=== PATIENT | male | born 1965 | race Caucasian/White ===

== ENCOUNTER → 2018-02-20 12:31 | Outpatient (CLI) | payer OTHER, SELFPAY ==
--- NOTE | 2018-02-20 12:38 | RAD_ITS ---
STUDY: X-RAY - LUMBAR SPINE REASON FOR EXAM: Male, 52 years old. Left hip pain. TECHNIQUE: 5 view(s) of the lumbar spine were obtained. COMPARISON: None FINDINGS: Normal lumbar lordosis. There is no substantial scoliosis. There is a normal alignment of the vertebrae. There is multilevel endplate spondylosis of the lumbar vertebrae. There is degenerative disc disease with borderline to mild L3-4 and L4-5 disc space narrowing. There is no demonstrated fracture. There are scattered degenerative arthroses of varying degree involving the lumbar facet articulations. The paraspinal soft tissue structures are unremarkable. There is moderate volume of fecal material in the right colon, as well as gas in much of the remaining nondistended colon and small bowel. The pattern overall is nonspecific. RAD/L/S Spine Min 4 Views IMPRESSION: Degenerative changes of the spine, as detailed above. Electronically Signed: Bartolo Summers MD at 15:02 EDT , Service support ,
--- NOTE | 2018-02-20 12:38 | RAD_ITS ---
STUDY: X-RAY - PELVIS AND LEFT HIP REASON FOR EXAM: Male, 52 years old. Left hip pain. TECHNIQUE: Radiological exam, hip, unilateral, with pelvis when performed; 2 or 3 views. COMPARISON: None. FINDINGS: There is a non-specific bowel gas pattern. Normal visualized soft tissue structures. Early degenerative arthroses of the visualized lower lumbar facet articulations. Normal bilateral iliac wings, sacroiliac joints and visualized sacrum. Normal bilateral superior and inferior pubic rami. Normal pubic symphysis. Normal bilateral ischial tuberosities. Normal visualized femoral head. Normal acetabulum. There is mild articular joint space narrowing of the hip. There is no demonstrated osseous destructive lesion or fracture RAD/Hip 2-3 Views with Pelvis IMPRESSION: Mild degenerative changes of the lower lumbar facet joints and left hip joint. Electronically Signed: Bartolo Summers MD at 15:00 EDT , Service support ,
== END ==
PROVIDERS: Family Provider Family Medicine; PCP Family Medicine; Visit Provider Family Medicine
DX: M25.552 Pain in left hip (principal)
CPT/HCPCS: 72110; 73502

== ENCOUNTER 2018-03-12 09:00 | Outpatient (RCR) | payer OTHER, SELFPAY ==
--- NOTE | 2018-02-22 11:27 | HP.PTEVAL ---
Patient's Visit Information CINDY ASH is a 52 year old M referred to Physical Therapy by Riley Pepper with a diagnosis of L hip pain. Date of Evaluation: 02/22/18 Physical Therapist: Eduar Loo, PT, - Visit Plan Frequency: 2x /Week Duration: 3 Weeks Plan: Postural edu, REIL, core stab ex's, LE stretching, DTR, foam roller, and HEP - Subjective Subjective: Pt reports he has had L hip pain for greater than 15 years. Pt notes he was water skiing when he injured his L hip. Pt notes the pain has progressively worsened over the past several weeks. Pt reports his pain is located on the posterior aspect of his L greater trocanter. Pt notes the pain is constant in nature, but the severity changes at different times. Sleep diff secondary to pain. Pt denies T or N in L LE. Pt reports he has been using a TENS unit to get pain relief. 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 Pt had Xrays recently which revealed nothing significant in the L hip. 0/10 at rest, 6/10 at worst. Pt has had PT in the past on several occasions, but pain relief was only temporary. - Pain L hip Pain Intensity (Out of 10): 0 Pain Intensity Range: 6 - Objective Neuro: B LE sensation is WNL to light touch. B patellar reflex= 1/3. Posture: Pt displays decreased L/S lordosis. Palpation: Pt is very sore on the greater trocanter in L hip. Pt Notes pain also on TFL. MMT: B LE's are rated at 5/5 throughout. ROM: B hips are WNL. Special testing: IT band very tight. Pt also has pos piriformis test. Leg length: B LE's are equal. Repeated movements of the L/S: RFIS 10x3 had increase in pain during and afterwards. MIRIAM decreased pain after the movement. REIL decreases pain completely. Pt is moderately limited with extension - Goals Goal 1:: Decrease L hip pain x 50% to aid with sleep Goal Time Frame: 2-4 Weeks Goal 2:: Increase L LE flexibility x 1 grade to aid with decreasing pain Goal Time Frame: 2-4 Weeks Goal 3:: Increase L/S ext ROM x 1 grade to aid with restoring better posture Goal Time Frame: 2-4 Weeks Goal 4:: I with HEP Goal Time Frame: 2-4 Weeks - Rehabilitation Potential Physical Therapy Diagnosis: L hip pain, limited flexibility, and limited L/S ROM secondary to possible L/S derrangement and L hip ITband dysfunction Rehabilitation Potential: Good - Anticipated Interventions Patient/Client Instruction: Educate patient on: Condition, Plan of Care For the Purpose of:: To improve self management Therapeutic Exercise to Include: Strength training, Endurance training, Body mechanics, Postural training, Flexibilty training, Dynamic Lumbar Stabilization, Herbert Exercises For the Purpose of:: To decrease pain, To increase ROM, To increase tolerance to activity/condition/position Thank you for the opportunity to evaluate your patient. For Medicare and Medicare HMO plans, please review the plan of care and approve it. It will need to be FAXED BACK to us at [phone] for Medicare purposes. Please let me know if there are questions or concerns regarding this plan of care. Physician Signature: Date:
--- NOTE | 2018-05-24 16:32 | HP.PTDCNRP_ITS ---
HP - Discharge Summary (1) - Patient Information CINDY ASH was seen in my office for initial evaluation on 02/22/18. The following Plan of Care was established for this patient: Initial Frequency: 2x /Week Initial Duration: 3 Weeks - Anticipated Interventions Patient/Client Instruction: Educate patient on: Condition, Plan of Care For the Purpose of:: To improve self management Therapeutic Exercise to Include: Strength training, Endurance training, Body mechanics, Postural training, Flexibilty training, Dynamic Lumbar Stabilization , Herbert Exercises For the Purpose of:: To decrease pain, To increase ROM, To increase tolerance to activity/condition/position This patient was last seen in our office . Pertinent comments regarding their Physical therapy will appear below: Pt was last treated on the date of 03/12/18 for his L hip pain. Pt did not return after his 4th visit, and is therefore discontinued at this time. At this point I will be discontinuing this patient from physical therapy. I would be happy to see this patient again in the future if found appropriate by the physician. Thank you! Eduar Loo, PT,
== END 2018-03-12 19:00 | disposition home or self-care (01) ==
LOC: PT 09:00
PROVIDERS: Family Provider Family Medicine; PCP Family Medicine; Visit Provider Family Medicine
DX: M25.552 Pain in left hip (principal)
CPT/HCPCS: 97110; 97161

== ENCOUNTER → 2021-10-04 08:03 | Outpatient (CLI) | payer OTHER, SELFPAY | PROVIDERS: PCP Family Medicine; Visit Provider Family Medicine | DX: Z23 Encounter for immunization (principal) ==